=== PATIENT | female | born 1975 | race Caucasian/White ===

== ENCOUNTER 2022-08-22 12:22 | Outpatient (CLI) | payer OTHER, SELFPAY ==
--- NOTE | ~2022-08-22 | MR_ITS ---
EXAMINATION: MR lumbar spine wo con DATE: 08/22/2022 13:11 INDICATION: Lumbar pain. TECHNIQUE: Magnetic resonance imaging (MRI) of the lumbar spine was performed without intravenous con trast. Sequences included sagittal T2-weighted FSE, sagittal T2-weighted FS FSE, sagittal T1-weighted FSE, and axial T2-weighted FSE. COMPARISON: None FINDINGS: There is 7 degrees levocurvature of lumbar spine. There is mild chronic anterior wedging of T12 vertebral body, likely physiologic. There is a hemangioma in L1 vertebral body. There is moderat silvia decreased disc height at L5-S1 with endplate remodeling. The distal spinal cord signal intensity is normal. The conus medullaris is at T12. The following disc levels are specifically discussed: L1-L2: The disc is bulging. There is mild bilateral facet joint osteoarthritis. There is mild bilater al neural foraminal stenosis. There is mild central canal stenosis. L2-L3: The disc is bulging and has an annular fissure. There is moderate bilateral facet joint osteoa rthritis. There is mild bilateral neural foraminal stenosis. There is mild central canal stenosis. L3-L4: The disc is bulging. There is severe bilateral facet joint osteoarthritis. There is mild bilat eral neural foraminal stenosis. There is mild central canal stenosis. L4-L5: The disc is bulging and has an annular fissure. There is mild right and moderate left facet socorro int osteoarthritis. There is mild right and moderate left neural foraminal stenosis. There is mild ce ntral canal stenosis. L5-S1: The disc is bulging and has an annular fissure. There is mild right and moderate left facet socorro int osteoarthritis. There is mild right and moderate left neural foraminal stenosis. There is mild ce ntral canal stenosis. IMPRESSION: 1. Moderate lower lumbar spondylosis. Reviewed, dictated and finalized at location B.
== END 2022-08-22 12:23 | disposition home or self-care (01) ==
PROVIDERS: PCP Family Medicine; Visit Provider Nurse Practitioner
DX: M54.40 Lumbago with sciatica, unspecified side (principal); M47.816 Spondylosis without myelopathy or radiculopathy, lumbar region
CPT/HCPCS: 72148

== ENCOUNTER 2022-09-12 12:47 | Outpatient (CLI) | payer OTHER, SELFPAY ==
--- NOTE | ~2022-09-12 | XR_ITS ---
XR knee RT 3V DATE: 09/12/2022 13:10 INDICATION: Right knee pain, popping TECHNIQUE: 3 views COMPARISON: None FINDINGS: There is minimal periarticular spurring at the patellofemoral and lateral compartments. Marlin nt spaces appear well preserved. No fracture or dislocation or joint effusion. No radiopaque intra-articular loose body or chondrocalc inosis. IMPRESSION: Minimal osteoarthritis Reviewed, dictated and finalized at location A. IMPRESSION: Minimal osteoarthritis
== END 2022-09-12 12:48 | disposition home or self-care (01) ==
PROVIDERS: PCP Family Medicine; Visit Provider Nurse Practitioner
DX: M25.561 Pain in right knee (principal)
CPT/HCPCS: 73562

== ENCOUNTER 2022-11-27 09:37 | Outpatient (CLI) | payer OTHER, SELFPAY ==
--- NOTE | ~2022-11-27 | MR_ITS ---
MRI of the right knee Clinical history: Pain Technique: Coronal proton density and proton density-weighted images, sagittal proton-density and T2 fat-sat images, and axial proton-density fat-saturated images were acquired. Findings: Anterior and posterior cruciate ligaments are intact. Medial collateral ligament and the la teral collateral ligament complex are intact. Popliteus tendon is intact. Medial and lateral menisci are intact, without evidence of tear. Articular cartilage is well preserved in the medial lateral compartment. Focal mild chondral lesion p resent at the lateral patellar facet. Bone marrow signals are unremarkable. Extensor mechanism is intact. No significant joint effusion or Blank's cyst. Impression: Focal low-grade chondral lesion along the lateral patellar facet. No other significant findings. Reviewed, dictated and finalized at location M. F [employer]OLL[employer]ATION Impression: Focal low-grade chondral lesion along the lateral patellar facet. No other significant findings.
== END 2022-11-27 09:38 ==
PROVIDERS: PCP Nurse Practitioner Family; Visit Provider Nurse Practitioner Family
DX: M25.561 Pain in right knee (principal)
CPT/HCPCS: 73721

== ENCOUNTER 2024-04-05 08:10 | Emergency (ER) | payer OTHER, SELFPAY ==
[2024-04-05 08:18] VITALS: BP 120/69; PULSE 65; RESP 16; TEMP 37.2; O2SAT 97
--- NOTE | 2024-04-05 08:34 | ED.URI ---
HPI - URI/Sore Throat General Chief Complaint: Upper Respiratory Infection Stated Complaint: Cough/Chest Congestion Time Seen by Provider: 04/05/24 08:22 Source: patient and RN notes reviewed Mode of arrival: ambulatory Limitations: no limitations History of Present Illness HPI Narrative: Patient presents today with 3 day history of cough, congestion. She also reports some sore throat due to coughing as well as some shortness of breath due to coughing episodes. Denies fever. She has tried a decongestant without relief. No history of asthma or COPD. She is a nonsmoker. Patient works at a prison doing laundry. States no residence have recently tested positive that she is aware of. Related Data Home Medications Medication Instructions Recorded Confirmed acetaminophen 650 mg 650 mg PO Q12H 05/13/20 04/05/24 tablet,extended release (Tylenol Arthritis Pain) Allergies Allergy/AdvReac Type Severity Reaction Status Date / Time No Known Allergies Allergy Verified 04/05/24 08:27 Review of Systems Review of Systems: CONSTITUTIONAL: Denies body aches, fever, chills, or sweats. EYES: Denies visual changes, redness, or discharge. ENT: Denies rhinorrhea, or otalgia.+ congestion, occasional sore throat CARDIOVASCULAR: Denies chest pain, palpitations, or edema. RESPIRATORY:+ cough, occasional shortness of breath GASTROINTESTINAL: Denies abdominal pain, nausea, vomiting, or diarrhea. GENITOURINARY: Denies dysuria or hematuria. SKIN: Denies rash, itching, or wounds. MUSCULOSKELETAL: Denies back pain, joint pain, or myalgia. NEUROLOGIC: Denies headache, numbness, tingling, or weakness. PSYCH: Denies depression or anxiety. [facility] Past Medical History Medical History Anxiety Arthralgia of knee, right Back pain of lumbar region with sciatica Fall Obesity Pain of back and right lower extremity Right knee pain Surgical History Surgical History History of hip replacement, total 2022 Hx of lumbosacral spine surgery Family History Family History Father Lung cancer metastatic to brain Mother Hypertension Arthritis Breast cancer Social History Social History Social History: Patient is , she lives with her and son in [facility]. 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 Caffeine-tea Smoking status: Never smoker Alcohol intake: never Drinks per week: 0 Substance use: never Substance use type: does not use Lack of Transportation: No Lack of Food: Never True Current Housing: I Have Housing Concerned About Future Housing: No Difficulty Paying Gas/Electric Bills: No Difficulty Paying for Meds: No Currently Unemployed: YES Education: Don't Know Difficulty w/ Childcare or Family Care: No Living arrangements: with family Occupation/Education: occupation Gender identity (if verbalized by the patient): Female Sexual Orientation (if Verbalized by the Patient): Straight or Heterosexual Agree to blood products: Yes Comments Reviewed Exam Narrative: GENERAL: Well-appearing, well-nourished, and in no acute distress. HEAD: Normocephalic, atraumatic. EYES: EOMI. No redness or drainage. Conjunctivae normal. ENT: Mucous membranes pink and moist. Nares mildly congested. No rhinorrhea. TMs normal bilaterally. Throat normal. Uvula midline. NECK: Normal AROM. Supple. No lymphadenopathy. CHEST: No respiratory distress. Clear to auscultation. HEART: Regular rate and rhythm. No murmur appreciated. EXTREMITIES: Normal range of motion. No edema. SKIN: Warm, dry, no rash. Capillary refill normal. Normal skin turgor. NEURO: No focal deficits. Alert and oriented x3. Gait steady. PSYCH: Normal affect.
== END 2024-04-05 09:00 | disposition home or self-care (01) ==
PROVIDERS: Emergency Provider Nurse Practitioner
DX: J06.9 Acute upper respiratory infection, unspecified (principal); Z20.822 Contact with and (suspected) exposure to COVID-19; E66.9 Obesity, unspecified; Z68.34 Body mass index [BMI] 34.0-34.9, adult
CPT/HCPCS: 87426; 87804; 99213; G0463

== ENCOUNTER 2025-01-02 10:43 | Emergency (ER) | payer OTHER, SELFPAY ==
--- NOTE | ~2025-01-02 | XR_ITS ---
EXAMINATION: XR chest 2V DATE: 01/02/2025 11:21 INDICATION: Chest pain TECHNIQUE: PA and lateral views of the chest were obtained. COMPARISON: None FINDINGS: The lungs are clear with no focal airspace opacities, pulmonary edema, pleural effusion or pneumothor ax. The cardiomediastinal silhouette is normal. There are bridging osteophytes at multiple levels con sistent with diffuse idiopathic skeletal hyperostosis (DISH). IMPRESSION: 1. No acute cardiopulmonary disease. Reviewed, dictated and finalized at location B. ANICAL ENGINEERING OFFICER
--- NOTE | 2025-01-02 10:45 | ECG_ITS ---
Test Date: 2025-01-02 10:49:39 Measurements Intervals [place] Rate: 56 P: 0 OR: 0 QRS: -17 QRSD: 82 T: 9 QT: 409 QTc: 397 Interpretive Statements SINUS OR ECTOPIC ATRIAL RHYTHM BASELINE ARTIFACT- I, II, III, AVR, AVL, AVF BORDERLINE ECG No previous ECG available for comparison Electronically Signed On 01-02-2025 11:21:11 ENVIRONMENTAL WEB CRAWLER by Christofer Herr D.O.
[2025-01-02 10:58] VITALS: BP 130/79; PULSE 63; TEMP 36.8; O2SAT 97
[2025-01-02 11:08] LABS: Basophils Percent Auto 0.2 % (0.2-1.2); Eosinophils Absolute Auto 0.1 K/mm3 (0-0.3); Eosinophils Percent Auto 1.3 % (0-4.4); Hematocrit 40.2 % (37.0-47.0); Hemoglobin 13.1 g/dL (12.0-15.0); Immature Granulocyte Absolute 0.03 K/mm3 (0.00-0.031); Immature Granulocyte Percent A 0.3 % (0-0.5); Lymphocytes Absolute Auto 1.15 K/mm3 (0.9-3.2); Lymphocytes Percent Auto 13.1 % (18.3-44.2); Mean Corpuscular HGB Conc 32.6 g/dl (32-36); Mean Corpuscular Volume 92.2 fl (80-100); Mean Platelet Volume 11.5 fl (7.4-10.4); Monocytes Absolute Auto 0.4 K/mm3 (0.1-0.6); Neutrophils Absolute Auto 7.1 K/mm3 (1.3-6.7); Neutrophils Percent Auto 81.1 % (45.5-73.1); Platelet Count Result 293 k/mm3 (150-375); Red Blood Count 4.36 M/mm3 (4.2-5.4); Red Cell Distribution Width 13.6 % (11.5-14.5); White Blood Count 8.8 K/mm3 (4.5-10.0)
[2025-01-02 11:20] LABS: Alanine Aminotransferase 16 U/L (6-35); Albumin Level 4.1 g/dL (3.5-5.1); Alkaline Phosphatase 96 U/L (38-126); Anion Gap 11 mmol/L (4-12); Aspartate Amino Transferase 23 U/L (14-36); Bilirubin,Total 0.8 mg/dL (0.2-1.3); Blood Urea Nitrogen 13 mg/dL (7-17); Calcium 9.2 mg/dL (8.4-10.2); Carbon Dioxide 25 mmol/L (22-30); Chloride 103 mmol/L (98-107); Estimated CRCL calculation 84 ml/min; Estimated Glomerular Filt Rate > 60; Glucose 98 mg/dL (65-110); Lipase 266 U/L (23-300); Potassium 4.5 mmol/L (3.4-5.0); Sodium 139 mmol/L (137-145)
[2025-01-02 11:31] LABS: INR 0.9; Prothrombin Time 12.3 Seconds (11.1-14.7)
[2025-01-02 11:32] LABS: Partial Thromboplastin Time 26.6 Seconds (22.3-36.8); Troponin I < 0.012 ng/mL (0.000-0.034)
--- OUTSIDE RECORDS SUMMARY | 2025-01-02 12:37 | XMS_ITS | Referral Summary ---
Author Organization [facility] [address] [facility] lt Address [address] [place] [address] Care Team Providers Care Rear Admiral Name Role Phone Ben Roberto MD Unavailable [phone] Unknown, Notinfile Primary Care Provider Unavail able Encounters Date Type Department Care Team Description 10/13/2024 Orders Only [facility] Surgery [address] [place] [address] [address] [place] [address] Julissa Gutierrez RMA Dog bite, hand, right, initial encounter (Primary Dx) from Last 3 Months Allergies No known active allergies Medications oxyCODONE-acet aminophen (PERCOCET) 5-325 mg per tabletIndicati ons:Pain Take 1 tablet by mouth every 4 (four) hours as needed for pain 40 tablet 3 Active celecoxib (CeleBREX) 200 mg capsule Take 1 capsule (200 mg total) by mouth daily 30 capsule 2 3 Active Additional Information Patient not taking.Reported on 09/14/2024 mupirocin (BACTROBAN) 2 % ointment Apply topically daily Apply with each dressing change. Collaborating physician Cedric Gannon MD 22 g 1 4 Active meloxicam (MOBIC) 15 mg tablet Take 1 tablet (15 mg total) by mouth daily 4 Active traMADoL (ULTRAM) 50 mg tablet Take 1 tablet (50 mg total) by mouth every 12 (twelve) hours 4 Active busPIRone (BUSPAR) 10 mg tablet Take 1 tablet (10 mg total) by mouth 2 (two) times a day 4 Active FLUoxetine (PROzac) 40 mg capsule Take 1 capsule (40 mg total) by mouth every morning 4 Active Active Problems Problem Noted Date Diagnosed Date Dog bite of multiple sites of left hand and fing ers 09/03/2024 Aftercare following right hip joint replacement surgery 05/03/2023 Arthralgia of shoulder 01/16/2010 Resolved Problems Problem Noted Date Diagnosed Date Resolved Date Primary osteoarthritis of right hip 03/29/2023 05/03/2023 Avascular necrosis of bone of right hip 03/12/2023 05/03/2023 Immunizations Immunization Administration Dates Next Due Influenza, Unspecified 01/13/2018(Deferred: Alpa ent Refused) Tdap 09/03/2024 Social History Tobacco Use Types Packs/Day Years Used Date Smoking Tobacco: Never Passive Smoke Exposure: Never Smokeless Tobacco: Never Tobacco Cessation:Counseling Given: Not Answered Alcohol Use Standard Drinks/Week Comments No 0 (1 standard drink = 0.6 oz pur e alcohol) AUDIT-C Answer Date Recorded Q1: How often do you have a drink containing alcohol? Never 03/29/2023 Q2: How many drinks containi ng alcohol do you have on a typical day when you are drinking? Patient does not drink Q3: How often do you have si x or more drinks on one occasion? Never 03/29/2023 Personal Safety Answer Date Recorded Have you ever been in or are you currently in a harmful physical or emotional relationship or is someone making you feel afraid or unsafe? 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 Gender Identity Not on file Sexual Orientation Not on file Last Filed Vital Signs Vital Sign Reading Time Taken Comments Blood Pressure 124/76 09/03/2024 8:50 PM CDT Pulse 72 09/03/2024 8:50 PM CDT Temperature 36.9 C (98.4 F) 09/03/2024 5:41 PM CDT Respiratory Rate 16 09/03/2024 8:50 PM CDT Oxygen Saturation 96% 09/03/2024 8:50 PM CDT Inhaled Oxygen Concentration - - Weight 107 kg (236 lb) 09/03/2024 5:41 PM CDT Height 163.8 cm (5' 4.5 ) 09/03/2024 5:41 PM CDT Body Mass Index 39.88 09/03/2024 5:41 PM CDT Plan of Treatment Not on file Medical Devices Implanted Type Area Food Production Manager Device Identifier Shelf Expiration Date Model / Serial / Lot [employer] [place] 6.5mm 35mm Acetabular Cancellous Screw Bone Sterile 1217-35-500 - [id number] Implanted:Qty: 1 on 03/29/2023 by Ben Roberto MD at [facility] Right: Hip [employer] [id number] 11/07/2032 1217-35-500 / / [id number] [employer] [place] 52mm Sector Hip Shell Acetabular Gription Sterile Latex Free [id number] - [id number] Implanted:Qty: 1 on 03/29/2023 by Ben Roberto MD at [facility] Right: Hip [employer] [id number] 11/07/2032 [id number] / / [id number] [employer] [place] 52mm 36mm Hip Neutral Liner Acetabular Altrx Sterile Latex Free [id number] - [id number] Implanted:Qty: 1 on 03/29/2023 by Ben Roberto MD at [facility] Right: Hip [employer] [id number] 02/06/2028 [id number] / / [id number] [employer] Actis Collared Hip 14 6 Standard Offset Stem Femoral [id number] - [id number] Implanted:Qty: 1 on 03/29/2023 by Ben Roberto MD at [facility] Right: Hip [employer] [id number] 01/05/2033 [id number] / / [id number] [employer] Articul/Zachary 36mm Cementless Hip +5mm /14 Taper Head Femoral Latex Free [id number] - [id number] Implanted:Qty: 1 on 03/29/2023 by Ben Roberto MD at [facility] Right: Hip [employer] [id number] 01/06/2028 [id number] / / [id number] Procedures Procedure Name Priority Date/Time Associated Diagnosis Comments SCREENING MAMMOGRAM 2D BILATERAL Schedule Routine, Read Routine (OP Routine) 02/03/2018 12:38 PM CDT Breast cancer screening from Last 3 Months or Most Recently Relevant to Health Maintenance Results * Screening Mammogram 2D Bilateral (02/03/2018 12:38 PM CDT) Anatomical Region Laterality Modality Breast Bilateral Mammography Impressions 02/03/2018 12:42 PM CDT 1. NO DEFINITIVE MAMMOGRAPHIC EVIDENCE OF MALIGNANCY 2. ANNUAL FOLLOW-UP RECOMMENDED BI-RADS 2 Electronically signed by: Shadi Causey M.D. Narrative 02/03/2018 12:42 PM CDT SCREENING MAMMOGRAM 2D BILATERAL HISTORY: Encounter for screening mammogram for malignant neoplasm of breast TECHNIQUE: 2 views of each breast were obtained. COMPARISON: None available. FINDINGS: The breasts are predominantly fatty replaced. No suspicious mass or calcification is seen to suggest mammographic evidence of malignancy. There are few benign breast calcifications. Digital technology was employed plus computer aided detection software (R2) was utilized in interpretation of these images. This facility utilizes a reminder system to notify patient's of yearly mammograms. Jeremy Miles MD IMG MAMMO PROCEDURES Brii l Result from Last 3 Months or Most Recently Relevant to Health Maintenance Insurance [facility] CHOICE PLUS CHOICE PLUS CHOICE PLUS Advance Directives For more information, please contact: [phone] * Full Code (Latest Code Status on File) Date Activated Date Inactivated Comments 03/29/2023 11:58 AM 03/29/2023 8:27 PM Care Teams Rear Admiral Relationship Specialty Start Date End Date Unknown, Notinfile PCP - General 10/30/24 Ben Roberto MD [address] [place] [address] Surgeon Orthopedic Surgery 03/29/23
--- OUTSIDE RECORDS SUMMARY | 2025-01-02 12:37 | XMS_ITS | Clinical Summary ---
Author Organization [facility] [place] [address] [facility] Address [address] [place] [address] Care Team Providers Care Restorative Rehab Aide Name Role Phone Ben Roberto MD Unavailable Unknown, Notinfile Primary Care Provider Unavail able Allergies No known active allergies Medications oxyCODONE-acet [...] of bone of right hip 03/12/2023 05/03/2023 Encounters Date Type Department Care Team Description 10/13/2024 Orders Only [facility] Surgery [address] [place] [address] Julissa Gutierrez RMA Dog bite, hand, right, initial encounter (Primary Dx) from Last 3 Months Immunizations Immunization Administration Dates Next Due Influenza, Unspecified 01/13/2018(Deferred: Alpa ent Refused) Tdap 09/03/2024 Surgical History Surgery Date Site/Laterality Comments BACK SURGERY Medical History Medical History Date Comments Arthritis Anxiety Acid reflux Family History Medical History Relation Name Comments No Known Problems Brother 1 Lázaro SANTIAGO No Known Problems Brother 2 Armond Breast cancer Mother Rhianna Diabetes Mother Rhianna Hypertension Mother Rhianna Stroke Mother Rhianna Cancer Other 1 Family history of Cancer; Diabetes Other 2 Family history of Diabetes mellitus; Hypertension Other 3 Family history of Hypertension; No Known Problems Sister Alicia No Known Problems Son Jaya Relation Name Status Comments Brother 1 Lázaro SANTIAGO Alive Brother 2 Armond Alive Father Lázaro Alive Mother Rhianna Alive Other 1 Other 2 Other 3 Sister Alicia Alive Son Jaya Alive Social History Tobacco Use Types Packs/Day Years [...] on file 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 Gender Identity Not on file Sexual Orientation Not on file Obstetrics History Para Term AB IAB SAB Ectopic Multiple Livin g Live Births 1 1 1 Date Outcome GA Total Labor Labor/2nd/3rd Weight Sex Type Anes PTL Nicci A1 A5 Name Clin Term Last Filed Vital Signs Vital Sign Reading [...] 09/03/2024 5:41 PM CDT Plan of Treatment Health Maintenance Due Date Last Done Comments Cervical Cancer Screening 1974 Colon Cancer Screening-Colonoscopy 1974 Hepatitis C Screening 1974 Hepatitis B Screening 1992 Regular Well Visit/Exam 18-64 1992 Depression Screening 01/13/2019 01/13/2018 Breast Cancer Screening-Mammogram 02/03/2019 02/03/2018 Zoster Vaccine (1 of 2) 2024 Covid-19 Vaccine (3 - 2023-2 5 season) 2024 11/12/2021, 01/13/2021 Influenza Vaccine (#1) 2024 DTaP/Tdap/Td Vaccine (2 - Td or Tdap) 09/03/2034 09/03/2024 Pneumococcal vaccine <65 Aged Out No longer eligible based on patient's age to complete this topic Medical Devices Implanted Type Area School Traffic Guard Device Identifier Shelf Expiration Date Model / Serial / Lot DepSolartrec [employer] [place] 6.5mm 35mm Acetabular Cancellous Screw Bone Sterile 1217-35-500 - [id number] Implanted:Qty: 1 on 03/29/2023 by Ben Roberto MD at [facility] Right: Hip [employer] [id number] 11/07/2032 1217-35-500 / / [id number] [employer] [place] 52mm Sector Hip Shell Acetabular Gription Sterile Latex Free [id number] - [id number] Implanted:Qty: 1 on 03/29/2023 by Ben Roberto MD at [facility] Right: Hip [employer] [id number] 11/07/2032 [id number] / / [id number] [employer] [place] 52mm 36mm Hip Neutral Liner Acetabular Altrx Sterile Latex Free [id number] - [id number] Implanted:Qty: 1 on 03/29/2023 by Ben Roberto MD at [facility] Right: Hip [employer] [id number] 02/06/2028 [id number] / / [id number] [employer] Actis Collared Hip 10/21 6 Standard Offset Stem Femoral [id number] - [id number] Implanted:Qty: 1 on 03/29/2023 by Ben Roberto MD at [facility] Right: Hip [employer] Inc [id number] 01/05/2033 [id number] / / [id number] [employer] Articul/Zachary 36mm Cementless Hip +5mm 14 Taper Head Femoral Latex Free [id number] - [id number] Implanted:Qty: 1 on 03/29/2023 by Ben Roberto MD at [facility] Right: Hip [employer] Inc [id number] 01/06/2028 [id number] / / [id number] Procedures Procedure Name Priority Date/Time Associated Diagnosis [...] Most Recently Relevant to Health Maintenance Insurance [facility] PLUS [facility] HMO/PPO Address: [facility] [address] [place] [address] [facility] CHOICE PLUS [facility] HMO/PPO Address: [address] [address] [place] [address] [facility] CHOICE PLUS [facility] H[facility]/PPO Address: [address] [place] [address] Advance Directives For more information, please contact: [phone] * Full Code (Latest Code Status on File) Date Activated Date Inactivated Comments 03/29/2023 11:58 AM 03/29/2023 8:27 PM Care Teams Restorative Rehab Aide Relationship Specialty Start Date End Date Unknown, Notinfile PCP - General 09/06/24 Ben Roberto MD [address] [place] [address] Surgeon Orthopedic Surgery 03/29/23
--- OUTSIDE RECORDS SUMMARY | 2025-01-02 12:37 | XMS_ITS | Clinical Summary ---
Author Organization [facility] Address [address] [place] [address] Phone Care Team Providers Care Automobile Upholsterer Name Role Phone Chana Wick APRN, ASSOCIATE SALES Primary Care Provider U navailable Medications TRAMADOL HCL PO Take by mouth. Active FLUOXETINE HCL PO Take by mouth. Active CEPHALEXIN PO Take by mouth. Active traMADol (ULTRAM) 50 MG TabletIndicatio ns:Dental infection Take 1 Tablet by mouth every 6 hours as needed for Moderate or more severe pain. 15 Tablet 10/30/2024 Active Encounters Date Type Department Care Team Description 10/30/2024 4:09 PM GMAT TUTOR - 10/30/2024 5:04 PM GMAT TUTOR Emergency [facility] Emergency [address] [place] [address] Sejal Baxter PAC Dental infection Discharge Disposition: Discharged to home or Selfcare 10/30/2024 Travel from Last 3 Months Social History Tobacco Use Types Packs/Day Years Used Date Smoking Tobacco: Never Smokeless Tobacco: Never Tobacco Cessation:Counseling Given: Not Answered Alcohol Use Standard Drinks/Week Comments Not Currently 0 (1 standard drink = 0.6 oz pur e alcohol) Comments Unknown Sex and Gender Information Value Date Recorded Sex Assigned at Not on file Legal Sex Female 7:51 PM CDT Gender Identity Not on file Sexual Orientation Not on file Last Filed Vital Signs Vital Sign Reading Time Taken Comments Blood Pressure 160/91 10/30/2024 2:29 PM GMAT TUTOR Pulse 67 10/30/2024 2:29 PM GMAT TUTOR Temperature 36.6 C (97.8 F) 10/30/2024 2:29 PM GMAT TUTOR Respiratory Rate 16 10/30/2024 2:29 PM GMAT TUTOR Oxygen Saturation 97% 10/30/2024 2:29 PM GMAT TUTOR Inhaled Oxygen Concentration - - Weight 90.7 kg (200 lb) 10/30/2024 2:29 PM GMAT TUTOR Height 185.4 cm (6' 1 ) 10/30/2024 2:29 PM GMAT TUTOR Body Mass Index 26.39 10/30/2024 2:29 PM GMAT TUTOR Plan of Treatment Health Maintenance Due Date Last Done Comments Hepatitis C Virus (HCV) Screening 1974 Hepatitis B Immunization (1 of 3 - 19+ 3-dose series) 1993 Pap Smear 1995 Cervical Cancer Screening (CCS) 2004 HPV/Cotest 2004 Mammogram 02/03/2019 02/03/2018, 02/03/2018 Colonoscopy 2019 Colorectal Cancer Screening 2019 Cologuard 2024 Immunochemical Fecal Occult Blood 2024 Pneumococcal Immunization (5 0+ years) (1 of 1 - PCV) 2024 Zoster Immunization (1 of 2) 2024 Influenza Immunization (#1) 2024 SARS-COV-2 Immunization (3 - 2023- season) 2024 11/12/2021, 01/13/2021 Respiratory Syncytial Virus (RSV) Immunization (Adult) (1 - 1-dose 75+ series) 2049 Discussion re Starting/Frequency of Mammograms Discontinued 02/03/2018 DTaP/Tdap/Td Immunization Discontinued 09/03/2024 TdaP Immunization Completed 09/03/2024 Meningococcal Immunization (ACWY) Aged Out No longer eligible based on patient's age to complete this topic Rotavirus Immunization Aged Out No lo nger eligible based on patient's age to complete this topic Procedures Procedure Name Priority Date/Time Associated Diagnosis Comments EKG SCAN 10/30/2024 12:00 AM GMAT TUTOR from Last 3 Months Results * EKG SCAN (10/30/2024 12:00 AM GMAT TUTOR) 10/30/2024 us Provider Scan IMG ECG ORDERABLES Final Result RESULTING AGENCY from Last 3 Months Insurance Care Teams Automobile Upholsterer Relationship Specialty Start Date End Date Chana Wick APRN, ASSOCIATE SALES PCP - General Certified Nurse Practitioner 05/20/20
--- NOTE | 2025-01-02 13:24 | ED_ITS ---
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 States it lasted for maybe 45 minutes in total. She did notice that it was radiating from front to back. Endorses feeling sweaty and clammy after the pain started. Denies associated shortness of breath, syncope, nausea, vomiting. Denies leg swelling or palpitations. At this time she is feeling asymptomatic No coronary history or history of VTE. No recent immobilization, surgeries or hospitalizations. GENERAL: Well-appearing, well-nourished, and in no acute distress. HEAD: Normocephalic, atraumatic. CHEST: Clear to auscultation. No respiratory distress. HEART: Regular rate and rhythm. NEURO: Alert and oriented x3. Patient screened in triage and initial orders placed. Additional care and disposition to be based upon diagnostic testing and treatment. Source: patient Mode of arrival: EMS Limitations: no limitations Related Data Home Medications ?Medication ?Instructions ?Recorded ?Confirmed ?Last Taken ?Type acetaminophen 650 mg 650 mg PO Q12H 05/13/20 12/11/24 Unknown History tablet,extended release (Tylenol Arthritis Pain) Allergies Allergy/AdvReac Type Severity Reaction Status Date / Time No Known Allergies Allergy Verified 12/11/24 13:33 Review of Systems 2 Review of Systems: All systems as dictated in HPI [facility] Past Medical History Medical History (Updated 01/02/25 @ 14:57 by Shimon Solorio PA-C) Fall Right knee pain Back pain of lumbar region with sciatica Pain of back and right lower extremity Arthralgia of knee, right Obesity Anxiety Surgical History Surgical History (Updated 12/11/24 @ 14:13 by Chana Wick NP) History of hip replacement, total 2022 takes Tramadol BID prn Hx of lumbosacral spine surgery Family History Family History Father Lung cancer metastatic to brain Mother Hypertension Arthritis Breast cancer Social History Social History Social History: Patient is , she lives with her and son in [facility]. 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 Caffeine-tea Smoking status: Never smoker Alcohol intake: never Drinks per week: 0 Substance use: never Substance use type: does not use Lack of Transportation: No Lack of Food: Never True Current Housing: I Have Housing Concerned About Future Housing: No Difficulty Paying Gas/Electric Bills: No Difficulty Paying for Meds: No Currently Unemployed: YES Education: Don't Know Difficulty w/ Childcare or Family Care: No Living arrangements: with family Occupation/Education: occupation Gender identity (if verbalized by the patient): Female Sexual Orientation (if Verbalized by the Patient): Straight or Heterosexual Agree to blood products: Yes Exam 2 Narrative: GENERAL: Well-appearing, well-nourished, and in no acute distress. HEAD: Normocephalic, atraumatic. EYES: PERRLA and EOMI. ENT: Nares clear, no rhinorrhea or epistaxis. Mucous membranes moist. Oropharynx without tonsillar hypertrophy exudate or other lesions. NECK: Supple. No adenopathy or masses. CHEST: No respiratory distress. Clear to auscultation. No wheezes rales or rhonchi HEART: Regular rate and rhythm. No murmur heard. Normal peripheral pulses. ABDOMEN: Soft, nontender, nondistended, normal active bowel sounds. MSK: Normal range of motion. No edema. SKIN: Warm, dry, no rash. NEURO: Alert and oriented x4. No focal deficits. PSYCH: Normal mood and affect. Course Vital Signs Vital signs: Vital Signs Temperature 98.3 F 01/02/25 10:58 Pulse Rate 63 01/02/25 10:58 Blood Pressure 130/79 01/02/25 10:58 Pulse Oximetry 97 01/02/25 10:58 Temperature 97.6 F 01/02/25 13:43 Pulse Rate 59 L 01/02/25 13:43 Respiratory Rate 18 01/02/25 13:43 Blood Pressure 148/80 H 01/02/25 13:43 Pulse Oximetry 96 01/02/25 13:43 MDM - Chest Pain MDM Narrative Medical decision making narrative: This is a 49-year-old female who presents to the ED for chief complaint of chest pain beginning this morning while at work. Pain lasted for about 45 minutes. Vitals are normal. Exam remarkable for the above. No acute distress. EKG shows no acute ischemic findings. See troponins are negative. D-dimer negative also. Wells score is very low so PE is affectively ruled out today. Chest x-ray normal. She remains pain-free on multiple re-evaluations. She feels ready to go home at this point. Presentation most likely consistent with musculoskeletal chest wall pain versus anxiety. Heart score is 2. Low concern for ACS. Patient will be discharged in stable condition. Supportive measures discussed and return precautions given. Patient is understanding and agreeable with plan for discharge with PCP follow-up. Lab Data 01/02/25 10:58 01/02/25 10:58 Labs: Lab Results 01/02/25 01/02/25 Range/Units 10:58 13:51 WBC 8.8 (4.5-10.0) K/mm3 RBC 4.36 (4.2-5.4) M/mm3 Hgb 13.1 (12.0-15.0) g/dL Hct 40.2 (37.0-47.0) % MCV 92.2 (80-100) fl MCH 30.0 (26-34) pg MCHC 32.6 (32-36) g/dl RDW 13.6 (11.5-14.5) % Plt Count 293 (150-375) k/mm3 MPV 11.5 H (7.4-10.4) fl Immature Gran % (Auto) 0.3 (0-0.5) % Neut % (Auto) 81.1 H (45.5-73.1) % Lymph % (Auto) 13.1 L (18.3-44.2) % [place] % (Auto) 4.0 (2.6-8.5) % Eos % (Auto) 1.3 (0-4.4) % Baso % (Auto) 0.2 (0.2-1.2) % Lymph # (Auto) 1.15 (0.9-3.2) K/mm3 [place] # (Auto) 0.4 (0.1-0.6) K/mm3 Eos # (Auto) 0.1 (0-0.3) K/mm3 Baso # (Auto) 0.0 (0.0-0.1) K/mm3 Abs Immat Gran (auto) 0.03 (0.00-0.031) K/mm3 Absolute Neuts (auto) 7.1 H (1.3-6.7) K/mm3 Absolute Nucleated RBC 0.000 (0.0-0.012) K/mm3 Nucleated RBC % 0.0 (0.0-0.2) % PT 12.3 (11.1-14.7) Seconds INR 0.9 APTT 26.6 (22.3-36.8) Seconds D-Dimer 0.38 (<0.48) ug/mL Sodium 139 (137-145) mmol/L Potassium 4.5 (3.4-5.0) mmol/L Chloride 103 (98-107) mmol/L Carbon Dioxide 25 (22-30) mmol/L Anion Gap 11 (4-12) mmol/L BUN 13 (7-17) mg/dL Creatinine 0.76 (0.7-1.0) mg/dL Estim Creat Clear Calc 84 ml/min Estimated GFR > 60 (59 - ) Glucose 98 (65-110) mg/dL Calcium 9.2 (8.4-10.2) mg/dL Total Bilirubin 0.8 (0.2-1.3) mg/dL AST 23 (14-36) U/L ALT 16 (6-35) U/L Alkaline Phosphatase 96 (38-126) U/L Troponin I < 0.012 < 0.012 (0.000-0.034) ng/mL Total Protein 8.0 (6.3-8.2) g/dL Albumin 4.1 (3.5-5.1) g/dL Lipase 266 (23-300) U/L Discharge Plan Discharge Clinical Impression: Chest pain Patient Disposition: Home, Self-Care Condition: Stable Instructions: Antibiotic Form, Chest Pain (ED) Additional Instructions: Your exam and imaging today are reassuring overall. Please start taking Tylenol and ibuprofen if you have chest pain. If you have new or worsening symptoms such as unrelenting chest pain, pressure or shortness of breath please return to the ER for further evaluation. Otherwise follow-up closely with PCP on this issue. Patient Language: Greenlandic Prescriptions: No Action acetaminophen [Tylenol Arthritis Pain] 650 mg tablet extended release 650 mg PO Q12H meloxicam 15 mg tablet 15 mg PO DAILY Qty: 90 1RF fluoxetine [Prozac] 40 mg capsule 40 mg PO QAM Qty: 90 1RF buspirone 10 mg tablet 10 mg PO BID Qty: 90 1RF tramadol 50 mg tablet 50 mg PO Q12H Qty: 60 1RF Follow-up/Referrals: Chana Wick NP [Primary Care Provider] - Time of Disposition: 14:57 Quality HEART score for chest pain patients History: slightly suspicious ECG: non specific repolarization disturbance/LBTB/PM Age: > 45 and < 65 years Risk factors: no risk factors known Troponin: < or = to 1x normal limit Heart score: 2
[2025-01-02 13:43] VITALS: BP 148/80; PULSE 59; RESP 18; TEMP 36.4; O2SAT 96
[2025-01-02 14:21] LABS: Troponin I < 0.012 ng/mL (0.000-0.034)
[2025-01-02 14:29] LABS: D Dimer 0.38 ug/mL (<0.48)
--- OUTSIDE RECORDS SUMMARY | 2025-01-02 16:47 | XMS_ITS | Clinical Summary ---
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 Gender Identity Not on file Sexual Orientation [...] this topic Medical Devices Implanted Type Area Client Development Consultant Device Identifier Shelf Expiration Date Model / Serial / Lot DepFilterBoxx [employer] [place] 6.5mm 35mm Acetabular Cancellous Screw Bone Sterile 1217-35-500 - [id number] Implanted:Qty: 1 on 03/29/2023 by Ben Roberto MD at [facility] Right: Hip [employer] [id number] 11/07/2032 1217-35-500 / / [id number] Dep[employer] [place] 52mm Sector Hip Shell Acetabular Gription Sterile Latex Free [id number] - [id number] Implanted:Qty: 1 on 03/29/2023 by Ben Roberto MD at [facility] Right: Hip [employer] [id number] 11/07/2032 [id number] / / [id number] [employer] [place] 52mm 36mm Hip Neutral Liner Acetabular Altrx Sterile Latex Free [id number] - [id number] Implanted:Qty: 1 on 03/29/2023 by Ben Roberto MD at [facility] Right: Hip [employer] [id number] 02/06/2028 [id number] / / [id number] Dep[employer] Actis Collared Hip 10/21 6 Standard Offset Stem Femoral [id number] - [id number] Implanted:Qty: 1 on 03/29/2023 by Ben Roberto MD at [facility] Right: Hip [employer] [id number] 01/05/2033 [id number] / / [id number] Dep[employer] Articul/Zachary 36mm Cementless Hip +5mm 14 Taper Head Femoral Latex Free [id number] - [id number] Implanted:Qty: 1 on 03/29/2023 by Ben Roberto MD at [facility] Right: Hip [employer] [id number] 01/06/2028 [id number] / / [id number] Procedures Procedure Name Priority Date/Time Associated Diagnosis [...] Most Recently Relevant to Health Maintenance Insurance [facility] CHOICE PLUS [facility] CHOICE PLUS [facility] CHOICE PLUS Advance Directives For more information, please contact: [phone] * Full Code (Latest Code Status on File) Date Activated Date Inactivated Comments 03/29/2023 11:58 AM 03/29/2023 8:27 PM Care Teams Food Specialist Relationship Specialty Start Date End Date Unknown, Notinfile PCP - General 09/06/24 Ben Roberto MD [address] [place] [address] Surgeon Orthopedic Surgery 03/29/23
--- OUTSIDE RECORDS SUMMARY | 2025-01-02 16:47 | XMS_ITS | Clinical Summary ---
Author Organization [facility] Address [address] [place] [address] Phone Care Team Providers Care Vocational School Teacher Name Role Phone Chana Wick APRN, ARSON INVESTIGATOR Primary Care Provider U navailable Medications TRAMADOL HCL PO Take by mouth. Active FLUOXETINE HCL PO Take by mouth. Active CEPHALEXIN PO Take by mouth. Active traMADol (ULTRAM) 50 MG TabletIndicatio ns:Dental infection Take 1 Tablet by mouth every 6 hours as needed for Moderate or more severe pain. 15 Tablet 10/30/2024 Active Encounters Date Type Department Care Team Description 10/30/2024 4:09 PM COATER HAND - 10/30/2024 5:04 PM COATER HAND Emergency [facility] Emergency [address] [place] [address] Sejal Baxter PAC Dental infection [...] Comments Blood Pressure 160/91 10/30/2024 2:29 PM COATER HAND Pulse 67 10/30/2024 2:29 PM COATER HAND Temperature 36.6 C (97.8 F) 10/30/2024 2:29 PM COATER HAND Respiratory Rate 16 10/30/2024 2:29 PM COATER HAND Oxygen Saturation 97% 10/30/2024 2:29 PM COATER HAND Inhaled Oxygen Concentration - - Weight 90.7 kg (200 lb) 10/30/2024 2:29 PM COATER HAND Height 185.4 cm (6' 1 ) 10/30/2024 2:29 PM COATER HAND Body Mass Index 26.39 10/30/2024 2:29 PM COATER HAND Plan of Treatment Health Maintenance Due Date [...] Diagnosis Comments EKG SCAN 10/30/2024 12:00 AM COATER HAND from Last 3 Months Results * EKG SCAN (10/30/2024 12:00 AM COATER HAND) 10/30/2024 us Provider Scan IMG ECG ORDERABLES Final Result RESULTING AGENCY from Last 3 Months Insurance Care Teams Vocational School Teacher Relationship Specialty Start Date End Date Chana Wick APRN, ARSON INVESTIGATOR PCP - General Certified Nurse Practitioner 05/20/20
--- OUTSIDE RECORDS SUMMARY | 2025-01-02 16:47 | XMS_ITS | Referral Summary ---
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 Gender Identity Not on file Sexual Orientation [...] on file Medical Devices Implanted Type Area Radio Installer Device Identifier Shelf Expiration Date Model / Serial / Lot [employer] [place] 6.5mm 35mm Acetabular Cancellous Screw Bone Sterile 1217-35-500 - [id number] Implanted:Qty: 1 on 03/29/2023 by Ben Roberto MD at [facility] Right: Hip [employer] [id number] 11/07/2032 1217-35-500 / / [id number] [employer] [place] 52mm Sector Hip Shell Acetabular Gription Sterile Latex Free [id number] - [id number] Implanted:Qty: 1 on 03/29/2023 by Ben Roberto MD at [facility] Right: Hip [employer] [id number] 11/07/2032 [id number] / / [id number] [employer] [place] 52mm 36mm Hip Neutral Liner Acetabular Altrx Sterile Latex Free [id number] - [id number] Implanted:Qty: 1 on 03/29/2023 by Ben Roberto MD at [facility] Right: Hip [employer] [id number] 02/06/2028 [id number] / / [id number] [employer] Actis Collared Hip 14 6 Standard Offset Stem Femoral [id number] - [id number] Implanted:Qty: 1 on 03/29/2023 by Ben Roberto MD at [facility] Right: Hip [employer] [id number] 01/05/2033 [id number] / / [id number] [employer] Articul/Zachary 36mm Cementless Hip +5mm /14 Taper Head Femoral Latex Free [id number] - [id number] Implanted:Qty: 1 on 03/29/2023 by Ben Roberto MD at [facility] Right: Hip [employer] [id number] 01/06/2028 [id number] / / [id number] Procedures Procedure Name Priority Date/Time Associated Diagnosis [...] Most Recently Relevant to Health Maintenance Insurance [facility] CHOICE PLUS CHOICE PLUS CHOICE PLUS Advance Directives For more information, please contact: [phone] * Full Code (Latest Code Status on File) Date Activated Date Inactivated Comments 03/29/2023 11:58 AM 03/29/2023 8:27 PM Care Teams Registered Nurse Cardiovascular Icu Relationship Specialty Start Date End Date Unknown, Notinfile PCP - General 10/30/24 Ben Roberto MD [address] [place] [address] Surgeon Orthopedic Surgery 03/29/23
== END 2025-01-02 15:00 | disposition home or self-care (01) ==
PROVIDERS: Emergency Medicine; Emergency Provider Physician Assistant; PCP Nurse Practitioner Family
DX: R07.9 Chest pain, unspecified (principal); E66.9 Obesity, unspecified; Z68.34 Body mass index [BMI] 34.0-34.9, adult; F41.9 Anxiety disorder, unspecified; Z96.649 Presence of unspecified artificial hip joint; Z79.899 Other long term (current) drug therapy; R94.31 Abnormal electrocardiogram [ECG] [EKG]
CPT/HCPCS: 36415; 71046; 80053; 83690; 84484; 85025; 85380; 85610; 85730; 93005; 99284

== ENCOUNTER 2025-03-16 00:54 | Day surgery (SDC) | payer OTHER, SELFPAY ==
--- NOTE | 2025-03-06 10:35 | PC.NURSE ---
Report to the Outpatient Waiting Room, entrance under the green pavilion located off [facility], at time _0830_ on date _03/16/25. Planned Procedure Time: _1030.? Time changes happen often and if your time is changed the preop area will call you the afternoon before. - You and your visitor will be asked to self-screen and do not enter if you have any COVID symptoms. Please call surgeon if you need to reschedule. - A mask is optional within the hospital at this time. Patients may have clear liquids (water, carbonated beverages, clear teas, apple juice) until 3 hours prior to surgery with a maximum of 20 ounces. - No food from midnight until time of surgery and no smoking, or chewing tobacco (or any form of nicotine). No chewing gum, candy or mints. - Infants may have breast milk until 4 hours before surgery, infant formula 6 hours prior to surgery. - Children will be allowed to drink immediately following surgery.? If applicable, please bring a bottle or sippy cup to assist with drinking. Juice, water, soda, and popsicles are readily available.? For infants on formula, please bring formula the day of surgery.? Pacifiers are allowed. Take only the following medications with a SIP of water on the morning of surgery: __BUPROPION, PROZAC, PAIN PILL IF NEEDED DO NOT STOP ANY OF YOUR OTHER PRESCRIPTION MEDICATIONS PRIOR TO SURGERY EXCEPT THE FOLLOWING Hold all vitamins and supplements for 3 days per anesthesiologist. Medications to discontinue per physician MELOXICAM INSTRUCTED BY Date to take last dose Please no make-up, nail luxembourgish, hairspray, perfume, deodorant, or body powder the day of surgery.? No jewelry (including any body piercings) or valuables the day of surgery, leave them at home.? Please take a shower or bath the night before, or the morning of, surgery with an antibacterial soap.? Wear comfortable, loose fitting clothing.? Children are encouraged to wear pajamas. - Jewelry must be removed prior to entering the operating room.? Rings and piercings that are not removed may be cut off. - The hospital will not accept responsibility for valuables.? - Please leave all valuables, including medications, at home the day of surgery. If you are going home after surgery, a licensed truss driver helper must drive you home.? - NO public transportation without another adult if you receive anesthesia. - We recommend that an adult stay with you for 24 hours following discharge. - We also recommend that you do not drive, make important decision, drink alcoholic beverages, or take any drugs that were not prescribed by your health care provider for at least 24 hours after your discharge time. For Pediatric surgeries, we recommend two adults accompany the child home. Follow any additional instructions given to you from your surgeon. Telephone instructions given to ___PATIENT__and asked if any additional questions and then verbalized understanding. Patient advised to call surgeon office or pre surgery nurse liaison [phone] if any additional questions.
[2025-03-16] VITALS (9 sets, daily range): BP systolic 121–134; BP diastolic 59–85; PULSE 47–80; RESP 10–14; TEMP 36.2–36.8; O2SAT 93–100; BMI 31.2
--- NOTE | ~2025-03-16 | XR_ITS ---
XR surgery orthopedic Indication: Arthrodesis left first metatarsal-phalangeal joint. TECHNIQUE: Fluoroscopy used during Arthrodesis left first metatarsal-phalangeal joint. performed by [Yinka Rowland Jr., MINA] on 03/16/2025. 10 seconds with 3 fluoroscopic images captured. FINDINGS: Correlate with procedure note. IMPRESSION: Fluoroscopy used during Arthrodesis left first metatarsal-phalangeal joint.. Reviewed, dictated and finalized at location A. IMPRESSION: Fluoroscopy used during Arthrodesis left first metatarsal-phalangea l joint..
--- OUTSIDE RECORDS SUMMARY | 2025-03-16 00:56 | XMS_ITS | Referral Summary ---
Author Organization 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 Gender Identity Not on file Sexual Orientation [...] on file Medical Devices Implanted Type Area Garden Center Manager Device Identifier Shelf Expiration Date Model / Serial / Lot Dep[employer] [place] 6.5mm 35mm Acetabular Cancellous Screw Bone Sterile 1217-35-500 - [id number] Implanted:Qty: 1 on 03/29/2023 by Ben Roberto MD at [facility] Right: Hip [employer] [id number] 11/07/2032 1217-35-500 / / [id number] Dep[employer] [place] 52mm Sector Hip Shell Acetabular Gription Sterile Latex Free [id number] - [id number] Implanted:Qty: 1 on 03/29/2023 by Ben Roberto MD at [facility] Right: Hip [employer] [id number] 11/07/2032 [id number] / / [id number] [employer] [place] 52mm 36mm Hip Neutral Liner Acetabular Altrx Sterile Latex Free [id number] - [id number] Implanted:Qty: 1 on 03/29/2023 by Ben Roberto MD at [facility] Right: Hip [employer] [id number] 02/06/2028 [id number] / / [id number] [employer] Actis Collared Hip 10/21 6 Standard Offset Stem Femoral [id number] - [id number] Implanted:Qty: 1 on 03/29/2023 by Ben Roberto MD at [facility] Right: Hip [employer] [id number] 01/05/2033 [id number] / / [id number] [employer] Articul/Zachary 36mm Cementless Hip +5mm 10/21 Taper Head Femoral Latex Free [id number] - [id number] Implanted:Qty: 1 on 03/29/2023 by Ben Roberto MD at [facility] Right: Hip [employer] [id number] 01/06/2028 [id number] / / [id number] Procedures Procedure Name Priority Date/Time Associated Diagnosis [...] Most Recently Relevant to Health Maintenance Insurance [facility] CHOICE PLUS [facility] CHOICE PLUS [employer] CHOICE PLUS Advance Directives For more information, please contact: [phone] * Full Code (Latest Code Status on File) Date Activated Date Inactivated Comments 03/29/2023 11:58 AM 03/29/2023 8:27 PM Care Teams Cheese Cutter Relationship Specialty Start Date End Date Unknown, Notinfile PCP - General 09/06/24 Ben Roberto MD [address] [place] [address] [place] [address] Surgeon Orthopedic Surgery 03/29/23
--- OUTSIDE RECORDS SUMMARY | 2025-03-16 00:56 | XMS_ITS | Clinical Summary ---
Author Organization [facility] Address [address] [place] [address] Phone Care Team Providers Care Security Administrator Name Role Phone Chana Wick APRN, COLLEGE BASKETBALL COACH Primary Care Provider + Medications TRAMADOL HCL PO Take by mouth. Active FLUOXETINE HCL PO Take by mouth. Active CEPHALEXIN PO Take by mouth. Active traMADol (ULTRAM) 50 MG TabletIndicatio ns:Dental infection Take 1 Tablet by mouth every 6 hours as needed for Moderate or more severe pain. 15 Tablet 10/30/2024 Active Social History Tobacco Use Types Packs/Day Years [...] Comments Blood Pressure 160/91 10/30/2024 2:29 PM BENDER MACHINE OPERATOR Pulse 67 10/30/2024 2:29 PM BENDER MACHINE OPERATOR Temperature 36.6 C (97.8 F) 10/30/2024 2:29 PM BENDER MACHINE OPERATOR Respiratory Rate 16 10/30/2024 2:29 PM BENDER MACHINE OPERATOR Oxygen Saturation 97% 10/30/2024 2:29 PM BENDER MACHINE OPERATOR Inhaled Oxygen Concentration - - Weight 90.7 kg (200 lb) 10/30/2024 2:29 PM BENDER MACHINE OPERATOR Height 185.4 cm (6' 1 ) 10/30/2024 2:29 PM BENDER MACHINE OPERATOR Body Mass Index 26.39 10/30/2024 2:29 PM BENDER MACHINE OPERATOR Plan of Treatment Health Maintenance Due Date [...] on patient's age to complete this topic Insurance [facility] Care Teams Security Administrator Relationship Specialty Start Date End Date Chana Wick APRN, MIRIAM PCP - General Certified Nurse Practitioner 05/20/20
--- OUTSIDE RECORDS SUMMARY | 2025-03-16 00:56 | XMS_ITS | Clinical Summary ---
Author Organization [facility] [address] 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 Gender Identity Not on file Sexual Orientation [...] 5 season) 2024 11/12/2021, 01/13/2021 Influenza Vaccine (Season Ended) 2025 DTaP/Tdap/Td Vaccine (2 - Td or Tdap) 09/03/2034 09/03/2024 Pneumococcal vaccine <65 Aged Out No longer eligible based on patient's age to complete this topic Medical Devices Implanted Type Area Dramatic Arts Historian Device Identifier Shelf Expiration Date Model / Serial / Lot [employer] [place] 6.5mm 35mm Acetabular Cancellous Screw Bone Sterile 1217-35-500 - [id number] Implanted:Qty: 1 on 03/29/2023 by Ben Roberto MD at [facility] Right: Hip [employer] [id number] 11/07/2032 1217-35-500 / / [id number] [employer] [place] 52mm Sector Hip Shell Acetabular Gription Sterile Latex Free [id number] - [id number] Implanted:Qty: 1 on 03/29/2023 by Ben Roberto MD at [facility] Right: Hip [employer] [id number] 11/07/2032 [id number] / / [id number] [employer] [place] 52mm 36mm Hip Neutral Liner Acetabular Altrx Sterile Latex Free [id number] - [id number] Implanted:Qty: 1 on 03/29/2023 by Ben Roberto MD at [facility] Right: Hip [employer] [id number] 02/06/2028 [id number] / / [id number] [employer] Actis Collared Hip 10/21 6 Standard Offset Stem Femoral [id number] - [id number] Implanted:Qty: 1 on 03/29/2023 by Ben Roberto MD at [facility] Right: Hip [employer] [id number] 01/05/2033 [id number] / / [id number] [employer] Articul/Zachary 36mm Cementless Hip +5mm 10/21 [place] Femoral Latex Free [id number] - [id number] Implanted:Qty: 1 on 03/29/2023 by Ben Roberto MD at [facility] Right: Hip [employer] [id number] 01/06/2028 [id number] / / [id number] Procedures Procedure Name Priority Date/Time Associated Diagnosis [...] Most Recently Relevant to Health Maintenance Insurance [facility] PLUS [facility] PL[facility] PL[facility] Advance Directives For more information, please contact: [phone] * Full Code (Latest Code Status on File) Date Activated Date Inactivated Comments 03/29/2023 11:58 AM 03/29/2023 8:27 PM Care Teams Finance Associate Relationship Specialty Start Date End Date Unknown, Notinfile PCP - General 09/06/24 Ben Roberto MD [address] [place] [address] [place] [address] Surgeon Orthopedic Surgery 03/29/23
--- NOTE | 2025-03-16 07:13 | WPDHPUPDATE1 ---
History and Physical Update Update Date/Time: 03/16/25 07:13 History and Physical has been reviewed, including an updated exam of the patient. There are NO changes in the patient's condition. Risks, benefits, and alternatives have been discussed and questions answered. Patient agrees to proceed with procedure.
[2025-03-16] MEDS: LIDOCAINE 2% LOCAL INJ 20 ML VIAL 10 ML INFILTRATE (08:29)
[2025-03-16] MEDS: LACTATED RINGERS 1,000 ML 30 ML IV CONT ×2 (09:00→12:33)
[2025-03-16] MEDS: Please enter patient height and weight for medication dosing XX (09:26)
--- NOTE | 2025-03-16 11:09 | WPDANESEPPF ---
Anes - Initial Pre Proc Eval Procedure: Operation Date: 03/16/25 10:30 Proposed Procedures p Arthrodesis of First Metatarsophalangeal Joint Left Foot - Yinka Rowland Jr., DPM Date/Time: 03/16/25 11:09 Surgeon: Yinka Rowland Jr., DPM Pre Op Diagnosis: bunion left foot Patient Data Age: 49 Gender: F Height: 1.78 m Weight: 98.8 kg Last Vital Signs Temp 97.1 F L 03/16/25 09:00 Pulse 58 L 03/16/25 09:00 Resp 14 03/16/25 09:00 BP 125/85 03/16/25 09:00 Pulse Ox 97 03/16/25 09:00 O2 Del Method Room Air 03/16/25 09:00 Allergies Allergy/AdvReac Type Severity Reaction Status Date / Time No Known Allergies Allergy Verified 03/16/25 09:27 Home Medications ?Medication ?Instructions ?Recorded ?Confirmed ?Type acetaminophen 650 mg 650 mg PO Q12H 05/13/20 03/06/25 History tablet,extended release (Tylenol Arthritis Pain) buspirone 10 mg tablet 10 mg PO BID #90 tabs 08/04/24 03/16/25 Rx meloxicam 15 mg tablet 15 mg PO DAILY #90 tabs 12/11/24 03/06/25 Rx tramadol 50 mg tablet 50 mg PO Q12H PRN pain #60 tabs 01/03/25 03/06/25 Rx pantoprazole 40 mg tablet,delayed 40 mg PO QAM #90 tabs 03/02/25 03/06/25 Rx release fluoxetine 40 mg capsule (Prozac) 40 mg PO QAM #90 caps 03/05/25 03/06/25 Rx Patient hx anesthesia problems: none Family hx anesthesia problems: none Results Review: All pre-operative results and documents have been reviewed as part of the pre-operative evaluation. [facility] Past Medical History Medical History Fall Right knee pain Back pain of lumbar region with sciatica Pain of back and right lower extremity Arthralgia of knee, right Obesity Anxiety Surgical History Surgical History History of hip replacement, total 2022 takes Tramadol BID prn Hx of lumbosacral spine surgery Family History Family History Father Lung cancer metastatic to brain Mother Hypertension Arthritis Breast cancer COPD (chronic obstructive pulmonary disease) CHF (congestive heart failure) Diabetes mellitus Social History Social History Social History: Patient is , she lives with her and son in [place]. 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 Caffeine-tea Smoking status: Never smoker Alcohol intake: never Drinks per week: 0 Substance use: never Substance use type: does not use Lack of Transportation: No Lack of Food: Never True Current Housing: I Have Housing Concerned About Future Housing: No Difficulty Paying Gas/Electric Bills: No Difficulty Paying for Meds: No Currently Unemployed: YES Education: Don't Know Difficulty w/ Childcare or Family Care: No Living arrangements: with family Occupation/Education: occupation Gender identity (if verbalized by the patient): Female Sexual Orientation (if Verbalized by the Patient): Straight or Heterosexual Agree to blood products: Yes Anes - Eval Final PreProcedure Day of Procedure 03/16/25 11:09 Patient weight: obese Lungs: normal air movement Airway: Mallampati scale class III Neurological: alert and oriented Last oral intake: >/= 8 hours ASA classification: II Emergent: no Anesthetic plan: proceed Anesthesia type and monitoring: general LMA and standard monitoring Results Review: All pre-operative results and documents have been reviewed as part of the pre-operative evaluation. Obesity, overall active, no cp or sob. Informed Consent: The patient's anesthetic plan and its attendant risks and benefits were discussed with the patient/family/POA. Questions were solicited and answers provided to the satisfaction of the patient/family/POA.
[2025-03-16] MEDS: ceFAZolin 2 GM/D5W 50 ML 2 GM/50 ML BAG IVPB (11:28)
--- NOTE | 2025-03-16 12:36 | W.PM.PROC2 ---
Procedure Note - Detailed Date of Procedure 03/16/25 Pre-op Diagnosis Arthritic bunion left foot Post-op Diagnosis Same Procedure Performed Arthrodesis of the first metatarsal phalangeal joint left foot Surgeon Yinka Rowland Jr., DPM Anesthesia General and Local Indications Painful left great toe joint with a large bunion deformity Findings Severe joint degeneration of the head of the proximal phalanx Description of Procedure PROCEDURE IN DETAIL: Under mild sedation, the patient was brought into the operating room, placed on the operating table in supine position. A pneumatic ankle tourniquet was placed about the patient's ipsilateral ankle. Following general anesthesia and a Hanson Block with 20ccs of 2% Lidocaine plain and 0.5% Marcaine plain, the foot was then scrubbed, prepped, and draped in the usual aseptic manner. An Esmarch bandage was then used to exsanguinate the patient's foot and the pneumatic ankle tourniquet was then inflated. Surgery began in the following manner: Attention was directed to the dorsal medial aspect of the 1st metatarsophalangeal joint where there was a moderate subcutaneous prominence was noted. The incision was made starting along the central shaft of the 1st metatarsal and extending just proximal to the interphalangeal joint of the hallux. The incision was continued deep down through the subcutaneous tissues using sharp and blunt dissection. All bleeders were cauterized as necessary. At this point, the dissection was continued down to the level of the periosteum and capsular structures overlying the 1st metatarsophalangeal joint. A full length periosteum and capsular incision was made just medial to the extensor hallucis longus tendon. The periosteum and capsular structures were freed from the base of the proximal phalanx as well as the distal 1st metatarsal. At this point, the 1st metatarsophalangeal joint was identified. There was loss of articular cartilage to the head of the 1st metatarsal as well as the base of the proximal phalanx worse centrally and medially. There was significant broadening and hypertrophy of the 1st metatarsophalangeal joint. Utilizing a sagittal bone saw, the hypertrophied 1st metatarsal was resected dorsally, medially, and laterally. A power bur was used to make sure that there were no rough edges and also to further debride the hypertrophic 1st metatarsal. Next, a rongeur was used to resect the hypertrophic base of the proximal phalanx. At this point, the reamer system for the Maxforce plate system was used to denude the degenerative cartilage from the head of the 1st metatarsal as well as the base of the proximal phalanx. The cartilage and subchondral bone were fully debrided utilizing the reamer system until healthy bleeding bone was noted. Next, a 2-0 drill bit was used to further fenestrate the head of the 1st metatarsal as well as the base of the proximal phalanx in order to allow fusion across the 1st metatarsophalangeal joint. Next, a guide wire for a 3.5 headless Arthrex compression screw was driven from the medial aspect of the base of the proximal phalanx into the head of the 1st metatarsal in order to serve as temporary fixation, next the cannulated screw was driven and provided excellent compression. Next A large steel plate was used to make sure that the hallux was in a rectus position both in the sagittal plane as well as the frontal plane. Excellent position of the hallux was noted. Next, a Maxforce plate was placed atop the 1st metatarsophalangeal joint held in position with [place] wires. Utilizing standard principles and techniques, the distal drill holes were drilled and three 3.0 mm fully-threaded locking screws were driven from dorsal to plantar holding the distal aspect of the plate intact. At this point, the Maxforce compression system was utilized from dorsal distal to proximal plantar across the 1st metatarsophalangeal joint with excellent compression noted. Next, a 3.0mm locking screw was used to further compress the joint along the oblong dynamic compression screw slot. Next, the remaining 2 proximal drill holes were drilled from dorsal to plantar across and two 3.0 mm locking screws were driven from dorsal to plantar. The wound site was then flushed with copious amounts of sterile saline. Fluoroscopy was used to make sure that the plate was appropriately aligned and oriented and also to make sure that the screws were of appropriate length and orientation. Excellent position of the 1st metatarsophalangeal joint was visualized in all planes. Next, the periosteum and capsular structures were reapproximated with 3-0 Vicryl. Next, the subcutaneous structures were reapproximated with 4-0 Vicryl. Next, the skin was reapproximated and coapted utilizing 4-0 Monocryl in running subcuticular suture fashion technique. Upon completion of the procedure, the incision was dressed with Steri-Strips, Adaptic, 4x4s, Kerlix, and Coban. The pneumatic ankle tourniquet was then deflated and a prompt hyperemic response was noted to all digits of the foot. A posterior splint was then applied to the affected lower extremity. It is important to note that Dr. Rowland was present throughout the procedure. The patient did very well with the procedure and the anesthesia. The patient was transferred to the recovery room with vital signs stable and vascular status intact to all toes of the foot. Following a period of postoperative monitoring, the patient will be discharged home on the following written and oral postoperative instructions: 1. Keep the dressing clean, dry, and intact. 2. The patient to be strictly nonweightbearing with a knee scooter or crutches. 3. The patient should ice and elevate the foot when at rest. 4. The patient should contact Dr. Rowland for all postop care and if any problems should arise. 5. Prescriptions were written for Percocet 5/325, dispensed 40 to be taken 1 p.o. q.4-6 hours as needed for severe pain. Furthermore, the patient should also take Xarelto 10 mg to be taken 1 p.o. daily starting 24 hours after surgery to prevent DVT for 14 days followed by one 325 mg aspirin until walking is re-initiated. Implants Arthrex Maxforce 1st MPJ fusion plate with five (3.0 locking screws) and one 3.0 Non locking Kreulock screw Estimated Blood Loss 1 Drains No Packing No Pathology None sent Complications No immediate complications Condition Stable Disposition Same day
[2025-03-16] MEDS: ACETAMINOPHEN 500 MG TABLET 1000 MG PO (13:35)
== END 2025-03-16 14:41 | disposition home or self-care (01) ==
PROVIDERS: PCP Family Medicine; Visit Provider Podiatrist Foot & Ankle Surgery
PROC: (CPT 28750; principal; 2025-03-16 10:30)
DX: M21.612 Bunion of left foot (principal); M20.12 Hallux valgus (acquired), left foot; M19.072 Primary osteoarthritis, left ankle and foot; F41.9 Anxiety disorder, unspecified; M06.9 Rheumatoid arthritis, unspecified; E66.9 Obesity, unspecified; Z68.31 Body mass index [BMI] 31.0-31.9, adult; Z79.891 Long term (current) use of opiate analgesic; Z79.1 Long term (current) use of non-steroidal anti-inflammatories (NSAID); Z80.1 Family history of malignant neoplasm of trachea, bronchus and lung; Z80.8 Family history of malignant neoplasm of other organs or systems; Z80.3 Family history of malignant neoplasm of breast; Z82.49 Family history of ischemic heart disease and other diseases of the circulatory system
CPT/HCPCS: 28750; 99199; A9270; C1713; C1769; J0690; J1100; J2003; J2250; J2704; J3010; J7120